=== PATIENT | female | born 1985 | race Caucasian/White ===

== ENCOUNTER 2021-11-11 10:23 | Emergency (ER) | payer MEDICAID, SELFPAY ==
--- NOTE | ~2021-11-11 | XR_ITS ---
EXAMINATION: XR ankle RT min 3V EXAM DATE: 11/11/2021 10:42 INDICATION: Right ankle pain and swelling laterally. No known recent injury. TECHNIQUE: Right ankle frontal, lateral and oblique projections obtained and reviewed. There is no p rior study for comparison. FINDINGS: The right ankle mortise appears intact. There are no acute fractures or dislocations iden tified. There is no subcutaneous gas. Nonspecific edema identified surrounding the ankle. There ar e no radiopaque foreign bodies. IMPRESSION: 1. XR ankle RT min 3V exam without acute osseous findings. 2. Soft tissue swelling. Reviewed, dictated and finalized at location A. [employer]
[2021-11-11 10:35] VITALS: BP 120/76; PULSE 100; RESP 16; TEMP 36.7; O2SAT 99
--- NOTE | 2021-11-11 11:22 | ED.LOWEXIN ---
HPI - Extremity Injury (Lower) General Chief Complaint: Extremity Injury, Lower Stated Complaint: right ankle injury Time Seen by Provider: 11/11/21 11:22 Source: patient, RN notes reviewed and old records reviewed Mode of arrival: ambulatory Limitations: no limitations History of Present Illness HPI Narrative: 36 year old female who presents to [facility] care with complaints of 1-1/2-week ago injury to right ankle while wearing high heels shoes. Patient states that she twisted and rolled her foot outward and has had pain to lateral and medial aspect of her ankle since with some swelling. Patient is able to ambulate with limping gait pedal pulses palpable of strong quality foot warm to touch and mobile no bruising noted. Patient has history of Crohn's so can not take any Ibuprofen or any Aleve, presenting not on biological for her Crohn's due to insurance changes. Patient reports no use of ice or medication for discomfort of right ankle pain. MD complaint: ankle injury Related Data Home Medications Medication Instructions Recorded Confirmed No Home Medications 11/11/21 11/11/21 Allergies Allergy/AdvReac Type Severity Reaction Status Date / Time Penicillins Allergy Unknown Rash Verified 11/11/21 10:59 Review of Systems Review of Systems: CONSTITUTIONAL: Denies fever, chills, or sweats. EYES: Denies visual changes, redness, or discharge. ENT: Denies rhinorrhea, congestion, sore throat, or otalgia. CARDIOVASCULAR: Denies chest pain, palpitations, or edema. RESPIRATORY: Denies cough or dyspnea. GASTROINTESTINAL: Denies abdominal pain, nausea, vomiting, or diarrhea. GENITOURINARY: Denies dysuria or hematuria. SKIN: Denies rash or itching. MUSCULOSKELETAL: Denies back pain,positive for right ankle joint pain, or myalgia. NEUROLOGIC: Denies headache, numbness, or weakness. PSYCHIATRIC: Denies anxiety or depression. All systems reviewed & are unremarkable except as noted in HPI and below PMFSH Past Medical History Medical History (Updated 11/12/21 @ 13:28 by Rosalba Thompson NP) Collar bone fracture ORIF plates and screws Crohn's disease Surgical History Surgical History (Updated 11/12/21 @ 13:28 by Rosalba Thompson NP) History of intestinal surgery Social History Social History (Updated 11/12/21 @ 13:32 by Roaslba Thompson NP) Smoking status: Current every day smoker Tobacco type: cigarettes Alcohol intake: unknown Substance use: unknown Gender identity (if verbalized by the patient): Female Comments At time of signature, agree with nursing past medical, surgical, social and family history. There is no relevant family history pertinent to the presenting complaint Exam Narrative: GENERAL: Well-appearing, well-nourished, and in no acute distress. HEAD: Normocephalic, atraumatic. EYES: PERRLA and EOMI. ENT: Nares clear, no rhinorrhea or epistaxis. Mucous membranes moist.TM's normal with good light reflex, throat normal with no redness, lesions, exudates or tonsil enlargement. NECK: Supple.no lymphadenopathy CHEST: Clear to auscultation. No respiratory distress, SAO2 99% on room air HEART: Regular rate and rhythm. No murmur heard. Normal peripheral pulses. ABDOMEN: Soft, nontender, nondistended, normal active bowel sounds.denies any pain EXTREMITIES: Normal range of motion. No edema. with exception to pain of right ankle with some swelling present to ankle medial and laterally with no bruising noted. Mobility sensation and sensation is intact. Able to ambulate with limping gait. SKIN: Warm, dry, no rash. NEURO: No focal deficits. Alert and oriented x3. Course Course Level of Care: Express Care Visit Vital Signs Vital signs: Vital Signs Temperature 36.7 C 11/11/21 10:35 Pulse Rate 100 11/11/21 10:35 Respiratory Rate 16 11/11/21 10:35 Blood Pressure 120/76 11/11/21 10:35 Pulse Oximetry 99 11/11/21 10:35 Temperature 36.7 C 11/11/21 10:35 Pulse Rate 100 11/11/21 10:35 Re
== END 2021-11-11 11:45 | disposition home or self-care (01) ==
PROVIDERS: Emergency Provider Registered Nurse
DX: S93.401A Sprain of unspecified ligament of right ankle, initial encounter (principal); S96.911A Strain of unspecified muscle and tendon at ankle and foot level, right foot, initial encounter; X50.9XXA Other and unspecified overexertion or strenuous movements or postures, initial encounter; F17.210 Nicotine dependence, cigarettes, uncomplicated; K50.90 Crohn's disease, unspecified, without complications
CPT/HCPCS: 73610; 99203; G0463